=== PATIENT | male | born 1950 | race Caucasian/White ===

== ENCOUNTER → 2023-11-14 14:58 | Outpatient (REF) | payer MEDICARE, BC, SELFPAY | LOC: PAVMRI 14:58 | PROVIDERS: ATTENDING PHYSICIAN Internal Medicine | DX: R41.89 Other symptoms and signs involving cognitive functions and awareness (principal); I25.10 Atherosclerotic heart disease of native coronary artery without angina pectoris; R73.03 Prediabetes; G45.9 Transient cerebral ischemic attack, unspecified | CPT/HCPCS: 70551 ==

== ENCOUNTER 2024-01-01 06:09 | Day surgery (SDC) | payer MEDICARE, BC, SELFPAY ==
[2024-01-01] VITALS (10 sets, daily range): BP systolic 133–173; BP diastolic 74–97; BMI 36.1
[2024-01-01] MEDS: NORMOSOL-R 1000 IV (08:56)
[2024-01-01] MEDS: TYLENOL 1000 MG PO (09:02)
[2024-01-01] MEDS: DILAUDID 0.25 MG IV (13:14)
[2024-01-01] MEDS: DILAUDID 0.5 MG IV ×2 (13:35→13:50)
== END 2024-01-01 15:30 | disposition home or self-care (01) ==
LOC: SDS 06:09
PROVIDERS: ATTENDING PHYSICIAN Otolaryngology; FAMILY PHYSICIAN Internal Medicine
DX: J34.3 Hypertrophy of nasal turbinates (principal); J31.0 Chronic rhinitis; G47.33 Obstructive sleep apnea (adult) (pediatric)
CPT/HCPCS: 31243; 30140; C2618

== ENCOUNTER 2024-02-02 09:29 | Emergency (ER) | payer MEDICARE, BC, SELFPAY ==
[2024-02-02 09:31] VITALS: BP 139/75; BMI 35.5
--- NOTE | 2024-02-02 09:35 | EDRN ---
the pt is resting in the stretcher in the lowest position, side rails up x2, call lacy within reach, HOB elevated, VS WNL, the pts family came back to the pts room, this RN stated that the provider would be in shortly
--- NOTE | 2024-02-02 09:37 | ED.GENMED ---
History of Present Illness
General
Chief Complaint: Chest Pain
Source: patient
Exam Limitations: none
Time Seen by Provider: 02/02/24 09:37
Nursing documentation reviewed up to this point in time: agreed with
History of Present Illness
History of Present Illness:
73-year-old complaining of left shoulder presenting via EMS. He has had this shoulder pain for the past 2 weeks, but it seemed worse this morning so he called EMS. This does not feel similar to when he has had heart attack required a stent.
Past History
Past History
ED Past Medical History: Asthma (Exercised induced), CAD, HTN, Hypercholesterolemia, Valvular disease, Psychiatric and Other (UTI)
ED Past Surgical History: Cardiac (X6 Stents) and Orthopedic
Social History
Tobacco: Non-smoker
Alcohol: None
Drug: None
Personal:
Living: with family
Employment: Employed
Family History
Family History: Early CAD
Review of Systems
Review of Systems
Allergies reviewed?: Yes
All Other Systems: Not applicable
Constitutional: Reports no symptoms
EENT: Reports no symptoms
Respiratory: Reports no symptoms
Cardiac: Reports no symptoms; Denies chest pain
ABD/GI: Reports no symptoms
: Reports no symptoms
Musculoskeletal: Reports joint pain (Left shoulder pain)
Skin: Reports no symptoms
Neurological: Reports no symptoms
Endocrine: Reports no symptoms
Hematologic/Lymphatic: Reports no symptoms
Psychiatric: Reports no symptoms
Phy Exam
Physical Exam
Physical Exam:
Physical Exam
General: no apparent distress, not acutely ill
Neck: supple. no meningeal signs. normal posterior pharynx
Heart: s1/s2 regular rate and rhythm, no murmur. equal radial
pulses. Midline sternotomy scar
HEENT: Pupils equal round reactive to light, EOMI
Lungs: no acute respiratory distress. clear bilaterally
Abdomen: normal bowel sounds. not tender. no CVAT
Neuro: alert and oriented. no focal neurological deficits cranial nerves II through XII intact
Skin: no rash
Psychiatric: well kept. interactive and cooperative
Extremities: no edema. no calf tenderness. negative homans. good distal pulses
Scores
Heart Score for Chest Pain Patients
STEMI patient?: No
History: Slightly or Non-Suspicious
ECG: Normal
Age: >/= 65 years
Risk Factors: >/= 3 Risk Factors or History of CAD
Troponin: </= Normal Limit
Heart Score for Chest Pain Patients: 4
Heart Score Risk: 20.3% MACE over next 6 weeks
Course
Orders/Labs/Results
Orders:
Orders
02/02/24 09:31
EKG [Electrocardiogram (*1)] Urgent
Reason for Study: Chest Pain
EKG- Treatment ONCE
02/02/24 09:32
Complete Blood Count/With Diff Urgent
Troponin I Urgent
02/02/24 09:36
CR Chest - 2 Views Urgent
Comment:
Reason For Exam: chest pain
CR Shoulder - Left Min 2 View* Urgent
Comment:
Reason For Exam: left arm pain
02/02/24 10:05
Comprehensive Metabolic Panel Urgent
02/02/24 12:25
Troponin I Urgent
02/02/24 13:02
Gabapentin [Neurontin] 300 mg PO NOW STA
Abnormal Lab Results
02/02/24 02/02/24
09:32 10:05
MCH 33.7 H pg
(27.0-31.0)
Plt Count 125 L 10^3/uL
(130-400)
MPV 10.5 H fL
(7.4-10.4)
Abs Immat Gran (auto) 0.1 H 10^3/uL
(0-0.05)
Absolute Monos (auto) 0.8 H 10^3/uL
(0.1-0.6)
Immature Gran % 0.6 H %
(0-0.5)
Lymphocytes % 19.6 L %
(20.5-51.1)
Monocytes % 10.3 H %
(1.7-9.3)
BUN 28 H mg/dl
(9-20)
Creatinine 0.6 L mg/dL
(0.7-1.3)
Glucose 105 H mg/dl
(70-99)
AST 69 H U/L
(17-59)
ALT 147 H U/L
(0-50)
02/02/24 09:32
02/02/24 10:05
Vital Signs
Initial and Last Documented VS:
Initial Vital Signs
Temp Pulse Resp BP Pulse Ox
98.9 F 60 24 139/75 96
02/02/24 09:31 02/02/24 09:31 02/02/24 09:31 02/02/24 09:31 02/02/24 09:31
Last Documented Vital Signs
Temp Pulse Resp BP Pulse Ox
98.9 F 57 17 161/94 98
02/02/24 09:31 02/02/24 12:15 02/02/24 12:15 02/02/24 12:00 02/02/24 12:15
MDM/Problems Addressed
Differential Diagnosis Includes:
ACS, shoulder strain, neuropathy
MDM/Problems Addressed:
73-year-old male with left shoulder, likely musculoskeletal, possible neuropathy. Patient denies chest pain. It does not feel similar to when he had a heart attack. He has had this pain ongoing for 2 to 4 weeks. Troponin negative x 2. Chest
x-ray findings, shoulder x-ray no fracture or dislocation, degenerative changes seen.
Chronic conditions affecting care: CAD
*Radiology
Radiology exam reviewed: radiology read reviewed (Chest x-ray no acute findings, left shoulder x-ray degenerative changes)
*Pulse Oximetry
Patient hypoxic: no
*EKG
Interpreted by ED Provider?: Yes
EKG Intrepretation Date: 02/02/24
EKG Intrepretation Time: 09:34
Interpretation: abnormal
Comparison EKG: no changes
Heart Rate: 59
Rate: bradycardiac
Rhythm: sinus
[place]on: normal axis
Interval: normal interval
QRS Pattern: normal QRS
Ischemia: no ischemia
*Stone Lathe Operator Interpretation
Rate: bradycardiac
Interpretation: abnormal
Heart Rate: 59
Rhythm: sinus
*Critical Care Note
Total Time (30-74mins, 75-104mins- exclusive of procedures): Not Applicable
Data Reviewed
Review of Other/Old Records Reveals: Operative Reports (Prior cardiac catheterization 66 shows 70% distal LAD, RCA and ISR lesion 05/16/2022)
Source: records
Patient Management
Social determinants of health affecting care: Living situation and Strong social support
Escalation/DeEscalation of care consider admission/obs:
Admit not indicated
ED Attending Note
-
Portions of this chart may have been created with voice recognition software.� Occasional wrong word or��sound alike� substitutions may have occurred due to the inherent limitations of voice recognition software.
Discharge Plan
Departure
Patient Disposition: Home (Routine Discharge)
Date of Disposition: 02/02/24
Time of Disposition: 13:15
Patient with high blood pressure during this ER visit?: Yes
Condition: Good
Discharge Problem:
Acute pain of left shoulder
Instructions: Shoulder pain
Prescriptions:
New
gabapentin [Neurontin] 300 mg capsule
300 mg PO HS PRN (Reason: extremity pain) Qty: 30 0RF
No Action
rosuvastatin [Crestor] 40 MG tablet
40 mg PO DAILY
aspirin 81 MG tablet,delayed release (DR/EC)
81 mg PO DAILY
ascorbic acid (vitamin C) [Vitamin C] 500 MG tablet
2,000 mg PO QPM
lamotrigine 100 MG tablet
150 mg PO BID@0800,1700
Co Q-10 300 MG capsule
300 mg PO DAILY
multivitamin with folic acid [Tab-A-Varinder] 1 TABLET tablet
1 tab PO DAILY
tamsulosin [Flomax] 0.4 mg Capsule
0.4 mg PO BID
desvenlafaxine succinate [Pristiq] 100 mg Tablet Extended Release 24 Hr
100 mg PO DAILY
valsartan 40 mg Tablet
40 mg PO DAILY Qty: 30 1RF
metoprolol succinate [Toprol XL] 50 mg tablet extended release 24 hr
75 mg PO BID Qty: 90 0RF
omega [id number] oil [Fish Oil] 1,000 mg (120 mg-180 mg) Capsule
1 cap PO DAILY Qty: 0 0RF
cholecalciferol (vitamin D3) [Vitamin D3] 125 mcg (5,000 unit) Tablet
125 mcg PO HS
trazodone 50 mg Tablet
25 mg PO HS
oxybutynin chloride 10 mg Tablet Extended Release 24hr
10 mg PO DAILY
isosorbide mononitrate 30 mg Tablet Extended Release 24 Hr
30 mg PO DAILY
ezetimibe 10 mg Tablet
10 mg PO DAILY
nitroglycerin 400 mcg/spray Aerosol,[place]
1 spray SUBLINGUAL PRN PRN (Reason: chest pain)
lamotrigine 150 mg Tablet
150 mg PO DAILY
meloxicam 15 mg Tablet
15 mg PO DAILY
Referrals:
Ralf Powers DO [Family Provider] -
Bharathi Garcia MD [Active] - Call in 1-3 days for appt
Interventions
Interventions:
*Risk Screen - Suicide Last Done: 02/02/24 09:31
*General Assessment Last Done: 02/02/24 09:31
*Neglect/Abuse Screening Last Done: 02/02/24 09:31
ED- Fall Risk Assessment Last Done: 02/02/24 09:31
*ED COVID-19 Vaccine History Last Done: 02/02/24 09:31
*Nursing Disposition Last Done: 02/02/24 13:27
ED- Cardiac Assessment Last Done: 02/02/24 09:31
Discharge Date and Time
Discharge Date/Time: 02/02/24 13:28
Print Language: TURKISH
[2024-02-02 09:48] LABS: % Basophils 0.3 % (0-2); % Eosinophils 2.1 % (0-6); % Immature Granulocytes 0.6 % (0-0.5); % Lymphocytes 19.6 % (20.5-51.1); % Monocytes 10.3 % (1.7-9.3); % Neutrophils 67.1 % (42.2-75.2); Absolute Eosinophils 0.2 10^3/uL (0-0.7); Absolute Immature Granulocytes 0.1 10^3/uL (0-0.05); Absolute Lymphocytes 1.6 10^3/uL (1.2-3.4); Absolute Monocytes 0.8 10^3/uL (0.1-0.6); Absolute Neutrophils 5.3 10^3/uL (1.4-6.5); Hematocrit 45.1 % (39.0-52.0); Hemoglobin 16.3 g/dL (13.0-18.0); Mean Corp Hgb Conc. 36.1 g/dL (33.0-37.0); Mean Corpuscular Hgb 33.7 pg (27.0-31.0); Mean Corpuscular Volume 93.2 fL (80.0-94.0); Mean Platelet Volume 10.5 fL (7.4-10.4); Nucleated Red Blood Cells % 0 % (-); Platelet Count 125 10^3/uL (130-400); Red Blood Cell Count 4.84 10^6/uL (4.70-6.10); Red Cell Dist. Width 13.2 % (11.5-14.5)
[2024-02-02 10:00] VITALS: BP 130/78
[2024-02-02 10:08] LABS: Troponin I < 0.012 ng/ml
--- NOTE | 2024-02-02 10:15 | EDRN ---
the pt pressed the call lacy and this RN entered the pts room, the pt stated to this RN, 'What are we waiting here for?', this RN explained to the pt that lab work has been drawn and that a CXR has to be performed and that the provider has to come
in to see the pt, will continue to monitor the pt closely
[2024-02-02 10:32] LABS: ALT (SGPT) 147 U/L (0-50); AST (SGOT) 69 U/L (17-59); Albumin 4.4 g/dl (3.5-5.0); Alkaline Phosphatase 72 U/L (38-126); Blood Urea Nitrogen 28 mg/dl (9-20); Calcium 9.4 mg/dl (8.4-10.2); Carbon Dioxide 26 mmol/L (22-30); Chloride 105 mmol/L (98-107); Estimated Creatinine Clearance 123 ml/min; Glucose 105 mg/dl (70-99); Potassium 4.3 mmol/L (3.5-5.1); Sodium 139 mmol/L (135-145); Total Protein 6.9 g/dl (6.3-8.2); eGFR > 60.00
--- NOTE | 2024-02-02 10:45 | EDRN ---
Dr. Greene currently at the pts bedside speaking with the pt and the pts
[2024-02-02 10:55] LABS: Total Bilirubin 0.6 mg/dl (0.2-1.3)
[2024-02-02 10:57] VITALS: BP 162/85
[2024-02-02 11:00] VITALS: BP 152/87
[2024-02-02 12:00] VITALS: BP 161/94
--- NOTE | 2024-02-02 12:31 | EDRN ---
this RN entered the pts room to draw second troponin and the pt stated to this RN, 'Woah what are we doing here, i have been here for almost 3 hours and nothing has been done, i thought that the blood work looked okay and i thought that you already
mehnaz a Troponin level what are you doing a second one for? I am ready to go home', this RN explained to the pt that he was having left shoulder pain that radiated to the chest and that the provider Dr. Greene wants a second Troponin which is
standard practice, the pt became visibly upset and this RN apologized to the pt and the pts for their frustration as they were upset that they would be in the ER longer, the pt apologized to this RN and allowed this RN to draw the second
troponin
--- NOTE | 2024-02-02 12:46 | EDRN ---
Dr. Greene currently at the pts bedside speaking with the pt and the pts
[2024-02-02 12:57] LABS: Troponin I < 0.012 ng/ml
[2024-02-02] MEDS: NEURONTIN 300 MG PO (13:23)
== END 2024-02-02 13:28 | disposition home or self-care (01) ==
LOC: EMR 09:29
PROVIDERS: EMERGENCY PHYSICIAN Emergency Medicine; FAMILY PHYSICIAN Internal Medicine
DX: M25.512 Pain in left shoulder (principal); R07.89 Other chest pain; M79.602 Pain in left arm; I10 Essential (primary) hypertension; E78.00 Pure hypercholesterolemia, unspecified; I25.10 Atherosclerotic heart disease of native coronary artery without angina pectoris; J45.909 Unspecified asthma, uncomplicated; I38 Endocarditis, valve unspecified; I25.2 Old myocardial infarction; Z95.5 Presence of coronary angioplasty implant and graft; Z87.440 Personal history of urinary (tract) infections; Z79.82 Long term (current) use of aspirin; Z88.8 Allergy status to other drugs, medicaments and biological substances
CPT/HCPCS: 99283; 71046; 73030; 80053; 84484; 85025; 93005

== ENCOUNTER → 2024-05-07 07:34 | Outpatient (REF) | payer MEDICARE, BC, SELFPAY | LOC: EMG 07:34 | PROVIDERS: ATTENDING PHYSICIAN Orthopaedic Surgery Hand Surgery; FAMILY PHYSICIAN Internal Medicine | DX: M79.602 Pain in left arm (principal); G56.02 Carpal tunnel syndrome, left upper limb | CPT/HCPCS: 95886; 95909 ==

== ENCOUNTER → 2024-09-04 09:41 | Outpatient (REF) | payer MEDICARE, BC, SELFPAY | LOC: HWRAD 09:41 | PROVIDERS: ATTENDING PHYSICIAN Surgery; FAMILY PHYSICIAN Internal Medicine | DX: N50.811 Right testicular pain (principal) | CPT/HCPCS: 76870; 93976 ==

== ENCOUNTER → 2024-12-09 14:33 | Outpatient (REF) | payer MEDICARE, BC, SELFPAY | LOC: RAD 14:33 | PROVIDERS: ATTENDING PHYSICIAN Nurse Practitioner Family; FAMILY PHYSICIAN Internal Medicine | DX: M79.672 Pain in left foot (principal) | CPT/HCPCS: 73630 ==

== ENCOUNTER 2025-03-05 10:56 | Emergency (ER) | payer MEDICARE, BC, SELFPAY ==
[2025-03-05] VITALS (8 sets, daily range): BP systolic 106–127; BP diastolic 70–80; BMI 33.1
[2025-03-05 11:50] LABS: % Basophils 0.5 % (0-2); % Eosinophils 1.3 % (0-6); % Immature Granulocytes 0.5 % (0-0.5); % Lymphocytes 16.9 % (20.5-51.1); % Monocytes 6.9 % (1.7-9.3); % Neutrophils 73.9 % (42.2-75.2); Absolute Eosinophils 0.1 10^3/uL (0-0.7); Absolute Lymphocytes 1.4 10^3/uL (1.2-3.4); Absolute Monocytes 0.6 10^3/uL (0.1-0.6); Absolute Neutrophils 6.3 10^3/uL (1.4-6.5); Hematocrit 50.9 % (39.0-52.0); Hemoglobin 17.4 g/dL (13.0-18.0); Mean Corp Hgb Conc. 34.2 g/dL (33.0-37.0); Mean Corpuscular Hgb 33.3 pg (27.0-31.0); Mean Corpuscular Volume 97.3 fL (80.0-94.0); Mean Platelet Volume 10.4 fL (7.4-10.4); Nucleated Red Blood Cells % 0 % (-); Platelet Count 122 10^3/uL (130-400); Red Blood Cell Count 5.23 10^6/uL (4.70-6.10); Red Cell Dist. Width 13.7 % (11.5-14.5); White Blood Cell Count 8.5 10^3/uL (4.8-10.8)
[2025-03-05 12:10] LABS: ALT (SGPT) 133 U/L (0-50); AST (SGOT) 59 U/L (17-59); Alkaline Phosphatase 59 U/L (38-126); Blood Urea Nitrogen 22 mg/dl (9-20); Carbon Dioxide 29 mmol/L (22-30); Chloride 103 mmol/L (98-107); Estimated Creatinine Clearance 88 ml/min; Glucose 84 mg/dl (70-99); Potassium 4.4 mmol/L (3.5-5.1); Sodium 140 mmol/L (135-145); Total Protein 7.4 g/dl (6.3-8.2); eGFR > 60.00
[2025-03-05 12:19] LABS: Troponin I < 0.012 ng/ml
--- NOTE | 2025-03-05 13:50 | ED.GENMED ---
History of Present Illness
General
Chief Complaint: Chest Pain
Source: patient and spouse
Exam Limitations: none
Time Seen by Provider: 03/05/25 11:49
Nursing documentation reviewed up to this point in time: agreed with
History of Present Illness
History of Present Illness:
Patient is a 74-year-old male with past medical history of bypass, stents, prediabetes, valve replacement reflux presents to the ER for evaluation. Patient was at his doctor for primary care appointment and mentioned intermittent episodes of chest
pain and was sent to the ER for evaluation. Patient reports intermittently for the past 2 weeks he has had some chest pressure. He reports this occurs a lot while driving. He describes this as feeling heavy books on his chest. He is not short of
breath with this. He reports this pain is not similar to when he had his previous bypass or stents. He denies any abdominal pain. He denies any nausea vomiting.Denies any abd pain .
Pt is followed by Dr Pereyra
Past History
Past History
ED Past Medical History: Asthma (Exercised induced), CAD, HTN, Hypercholesterolemia, Valvular disease, Psychiatric and Other (UTI)
ED Past Surgical History: Cardiac (X6 Stents) and Orthopedic
Social History
Tobacco: Non-smoker
Alcohol: None
Drug: None
Personal:
Living: with family
Employment: Employed
Family History
Family History: Early CAD
Phy Exam
General Physical Exam
General Presentation: no apparent distress
General age: appears stated age
General Skin: warm and dry
General Habitus: normal
General Mental: alert
General Hydration: appears well hydrated
Cardiovascular Exam
Cardiovascular Exam: regular rate/rhythm, no murmur and normal peripheral pulses
Pulmonary Exam
Pulmonary Exam: lungs clear and no respiratory distress
Gastrointestinal Exam
Gastrointestinal Exam: normal bowel sounds, non tender and soft
Neurological Exam
Neurological Exam: alert and oriented x3
Musculoskeletal Exam
Musculoskeletal Exam: full ROM
Skin Exam
Skin Exam: normal color and warm/dry
Psychiatric Exam
Psychiatric Exam: normal mood/affect
Scores
Heart Score for Chest Pain Patients
STEMI patient?: Not applicable
Course
Orders/Labs/Results
Orders:
Orders
03/05/25 10:56
Electrocardiogram (*1) Urgent
Reason for Study: Chest Pain
03/05/25 10:57
EKG- Treatment ONCE
03/05/25 11:31
Complete Blood Count/With Diff Urgent
Comprehensive Metabolic Panel Urgent
Troponin I Urgent
03/05/25 14:05
Chest [CR Chest - 2 Views ] Urgent
Comment:
Reason For Exam: cp
03/05/25 15:41
Electrocardiogram (*1) Urgent
Reason for Study: Chest Pain
EKG- Treatment ONCE
03/05/25 15:44
Troponin I Urgent
Abnormal Lab Results
03/05/25
11:31
MCV 97.3 H fL
(80.0-94.0)
MCH 33.3 H pg
(27.0-31.0)
Plt Count 122 L 10^3/uL
(130-400)
Lymphocytes % 16.9 L %
(20.5-51.1)
BUN 22 H mg/dl
(9-20)
ALT 133 H U/L
(0-50)
03/05/25 11:31
03/05/25 11:31
Vital Signs
Initial and Last Documented VS:
Initial Vital Signs
Temp Pulse Resp BP Pulse Ox
97.8 F 73 16 106/71 96
03/05/25 11:01 03/05/25 11:01 03/05/25 11:01 03/05/25 11:01 03/05/25 11:01
Last Documented Vital Signs
Temp Pulse Resp BP Pulse Ox
97.8 F 65 25 110/80 98
03/05/25 11:01 03/05/25 16:00 03/05/25 16:00 03/05/25 16:00 03/05/25 16:00
Last Code Striper consulted with Physician
Last Code Striper consulted with physician?: Yes
Name of Physician Consulted: apple
MDM/Problems Addressed
Differential Diagnosis Includes:
Not limited to ACS muscle pain, reflux
MDM/Problems Addressed:
74-year-old male with CAD presents to the ER with intermittent episodes of chest discomfort that he reports this chest pressure off and on for the past 2 weeks not associate with shortness of breath. This does not feel similar to his cardiac chest
pain previously. He presents awake alert no acute distress asymptomatic now. No acute findings on EKG cardiac troponin negative.
Abdomen soft nontender no complaints abdominal pain nausea vomiting. No shortness of breath.
Patient with mildly elevated ALT this is not new reports patient has a history of fatty liver and this has been elevated multiple times in the past they are followed by liver specialist for this.
Case reviewed ED physician will recheck troponin(second EKG unchanged) patient has remained asymptomatic here in the ER stable for discharge home with chest pain hotline. Patient well-appearing in no acute distress
*Radiology
Radiology exam reviewed: radiology read reviewed
*Pulse Oximetry
SaO2: 100
Oxygen Mode of Delivery: Room air
Patient hypoxic: no
*EKG
Interpretation: normal
Comparison EKG: no changes
Heart Rate: 70
Rate: normal
Rhythm: sinus
Ischemia: other (Repeat EKG unchanged)
*Critical Care Note
Total Time (30-74mins, 75-104mins- exclusive of procedures): Not Applicable
ED Attending Note
-
Portions of this chart may have been created with voice recognition software.� Occasional wrong word or��sound alike� substitutions may have occurred due to the inherent limitations of voice recognition software.
Discharge Plan
Departure
Patient Disposition: Home (Routine Discharge)
Date of Disposition: 03/05/25
Time of Disposition: 16:20
Patient with high blood pressure during this ER visit?: No
Condition: Fair
Covid-19: Not Applicable
Discharge Problem:
Chest pain
Instructions: Chest Pain DCA Follow Up
Prescriptions:
No Action
rosuvastatin [Crestor] 40 MG tablet
40 mg PO DAILY
aspirin 81 MG tablet,delayed release (DR/EC)
81 mg PO DAILY
ascorbic acid (vitamin C) [Vitamin C] 500 MG tablet
2,000 mg PO QPM
lamotrigine 100 MG tablet
150 mg PO BID@0800,1700
Co Q-10 300 MG capsule
300 mg PO DAILY
multivitamin with folic acid [Tab-A-Varinder] 1 TABLET tablet
1 tab PO DAILY
tamsulosin [Flomax] 0.4 mg Capsule
0.4 mg PO BID
desvenlafaxine succinate [Pristiq] 100 mg Tablet Extended Release 24 Hr
100 mg PO DAILY
valsartan 40 mg Tablet
40 mg PO DAILY Qty: 30 1RF
metoprolol succinate [Toprol XL] 50 mg tablet extended release 24 hr
75 mg PO BID Qty: 90 0RF
omega [id number] oil [Fish Oil] 1,000 mg (120 mg-180 mg) Capsule
1 cap PO DAILY Qty: 0 0RF
cholecalciferol (vitamin D3) [Vitamin D3] 125 mcg (5,000 unit) Tablet
125 mcg PO HS
trazodone 50 mg Tablet
25 mg PO HS
oxybutynin chloride 10 mg Tablet Extended Release 24hr
10 mg PO DAILY
isosorbide mononitrate 30 mg Tablet Extended Release 24 Hr
30 mg PO DAILY
ezetimibe 10 mg Tablet
10 mg PO DAILY
nitroglycerin 400 mcg/spray Aerosol,[place]
1 spray SUBLINGUAL PRN PRN (Reason: chest pain)
lamotrigine 150 mg Tablet
150 mg PO DAILY
meloxicam 15 mg Tablet
15 mg PO DAILY
gabapentin [Neurontin] 300 mg capsule
300 mg PO HS PRN (Reason: extremity pain) Qty: 30 0RF
Referrals:
ade pereyra [Other]
Ralf Powers DO [Family Provider, Internal Medicine]
Ted Pereyra MD [Active, Cardiology]
Activity Restrictions/Additional Instructions:
As discussed you were placed on the chest pain hotline. You should receive a call from the office in the next several days.
if you do not please call the office to schedule an appointment. Return if any worsening of symptoms.
Interventions
Interventions:
*Risk Screen - Suicide Last Done: 03/05/25 12:00
*General Assessment Last Done: 03/05/25 12:00
*Neglect/Abuse Screening Last Done: 03/05/25 12:00
*ED- Fall Risk Assessment Last Done: 03/05/25 12:00
*ED COVID-19 Vaccine History Last Done: 03/05/25 12:00
*Nursing Disposition Last Done: 03/05/25 16:33
ED- Cardiac Assessment Last Done: 03/05/25 11:31
Discharge Date and Time
Discharge Date/Time: 03/05/25 16:34
Print Language: [place]
[2025-03-05 16:14] LABS: Troponin I < 0.012 ng/ml
== END 2025-03-05 16:34 | disposition home or self-care (01) ==
LOC: EMR 10:56
PROVIDERS: Emergency Medicine; Nurse Practitioner; EMERGENCY PHYSICIAN Emergency Medicine; FAMILY PHYSICIAN Internal Medicine
DX: R07.89 Other chest pain (principal); J45.909 Unspecified asthma, uncomplicated; I25.10 Atherosclerotic heart disease of native coronary artery without angina pectoris; I10 Essential (primary) hypertension; E78.00 Pure hypercholesterolemia, unspecified; I38 Endocarditis, valve unspecified; Z82.49 Family history of ischemic heart disease and other diseases of the circulatory system; Z87.440 Personal history of urinary (tract) infections; Z95.5 Presence of coronary angioplasty implant and graft
CPT/HCPCS: 99283; 71046; 80053; 84484; 85025; 93005

== ENCOUNTER → 2025-04-28 07:42 | Outpatient (REF) | payer MEDICARE, BC, SELFPAY | LOC: PAVMRI 07:42 | PROVIDERS: ATTENDING PHYSICIAN Surgery; FAMILY PHYSICIAN Internal Medicine | DX: R10.2 Pelvic and perineal pain (principal) | CPT/HCPCS: 72197; A9575 ==